=== PATIENT | female | born 1975 | race Caucasian/White ===

== ENCOUNTER 2022-11-14 16:01 | Emergency (ER) | payer OTHER ==
[2022-11-14] MEDS ORDERED: SODIUM CHLORIDE 0.9% 500 ML INFUS.BAG IV ONE (17:25)
[2022-11-14] MEDS ORDERED: MAG HYDROX/AL HYDROX/SIMETH -MYLANTA- ORAL SUSPENSION PO ONE (17:25)
[2022-11-14] MEDS ORDERED: MAG HYDROX/AL HYDROX/SIMETH 30 ML UNIT-DOSE CUP PO ONE (17:25)
[2022-11-14] MEDS ORDERED: FAMOTIDINE 20 MG/50 ML IVPB 20 MG/50 ML MG IVPB ONE (17:25)
[2022-11-14] MEDS ORDERED: MAG HYDROX/AL HYDROX/SIMETH 30 ML UNIT-DOSE CUP ONE (17:40)
[2022-11-14] MEDS ORDERED: FAMOTIDINE 10 MG/ML VIAL IVPB ONE (17:40)
[2022-11-14 17:44] LABS: HEMATOCRIT 35.9 % (32.4-45.2); HEMOGLOBIN 11.4 GM/dL (10.7-15.3); MCH 23.6 pg (25.7-33.7); MCHC 31.9 g/dl (32.0-36.0); MEAN CELL VOLUME 74.1 fl (80-96); MEAN PLT VOLUME 7.1 fl (7.5-11.1); PLATELET COUNT 347 10^3/uL (134-434); RBC 4.84 M/mm3 (3.60-5.2); RDW 15.6 % (11.6-15.6); WHITE BLOOD COUNT 13.1 K/mm3 (4.0-10.0)
[2022-11-14 18:02] LABS: POTASSIUM 4.1 mmol/L (3.5-5.1)
[2022-11-14 18:04] LABS: CALCIUM 8.4 mg/dL (8.5-10.1)
[2022-11-14 18:05] LABS: ALBUMIN 3.6 g/dl (3.4-5.0); BLOOD UREA NITROGEN 8.6 mg/dL (7-18)
[2022-11-14 18:08] LABS: CREATININE 0.8 mg/dL (0.55-1.3)
[2022-11-14 18:09] LABS: BILIRUBIN,TOTAL 0.6 mg/dL (0.2-1); TOT PROT 7.6 g/dl (6.4-8.2)
[2022-11-14 20:51] VITALS: BP 127/71; PULSE 98; RESP 18; TEMP 98.7
== END 2022-11-14 22:57 | disposition home or self-care (01) ==
LOC: JER 16:01
PROC: 3E033GC Introduction of Other Therapeutic Substance into Peripheral Vein, Percutaneous Approach (ICD-10-PCS; principal; 2022-11-14)
DX: R55 Syncope and collapse (principal); R42 Dizziness and giddiness; K29.70 Gastritis, unspecified, without bleeding; R10.12 Left upper quadrant pain; R10.13 Epigastric pain
CPT/HCPCS: 36415; 70450-TC; 74177-TC; 80053; 83605; 83690; 84703; 85027; 93005; 93010; 99285-25; Q9967